=== PATIENT | male | born 1990 | race Caucasian/White ===

== ENCOUNTER 2020-09-26 06:28 | Emergency (ER) | payer OTHER ==
[2020-09-26 08:11] LABS: HEMOGLOBIN 16.9 gm/dl (14.0-17.5); RED BLOOD COUNT 5.87 M/UL (4.20-5.50); WHITE BLOOD COUNT 8.9 K/UL (4.5-11.0)
[2020-09-26 08:16] LABS: BUN/CREATININE RATIO 8 (0-10)
[2020-09-26] MEDS ORDERED: IBUPROFEN400 MG PO (09:26)
== END 2020-09-26 09:47 | disposition home or self-care (01) ==
LOC: ER1 06:28
PROVIDERS: Emergency Medicine
DX: N13.2 Hydronephrosis with renal and ureteral calculous obstruction (principal); R16.1 Splenomegaly, not elsewhere classified; F19.10 Other psychoactive substance abuse, uncomplicated; Z90.49 Acquired absence of other specified parts of digestive tract
CPT/HCPCS: 80053; 81001; 85025; 96374; 96375; 99284; J2270; J2405; J7030

== ENCOUNTER 2021-03-13 00:41 | Emergency (ER) | payer OTHER ==
[~2021-03-13] VITALS: Ht 180.3 cm; Wt 79.4 kg
[~2021-03-13 00:41] MED LIST: IBUPROFEN400 MG PO
[2021-03-13 01:48] LABS: HEMOGLOBIN 14.4 gm/dl (14.0-17.5); RED BLOOD COUNT 4.96 M/UL (4.20-5.50); WHITE BLOOD COUNT 5.6 K/UL (4.5-11.0)
[2021-03-13 01:58] LABS: BUN/CREATININE RATIO 9 (0-10)
== END 2021-03-13 06:01 | disposition home or self-care (01) ==
LOC: ER1 00:41
PROVIDERS: Emergency Medicine
PROC: 3E1N38Z Irrigation of Male Reproductive using Irrigating Substance, Percutaneous Approach (ICD-10-PCS; principal; 2021-03-13)
DX: N48.30 Priapism, unspecified (principal); R00.2 Palpitations
CPT/HCPCS: 72170; 74018; 80048; 81001; 85025; 96374; 96375; 99284; J2250; J2270; J2370

== ENCOUNTER 2021-05-12 00:25 | Emergency (ER) | payer OTHER ==
[2021-05-13 22:07] LABS: CHLAMYDIA TRACHOMATIS, NAA Negative (Negative); NEISSERIA GONORRHOEAE, NAA Positive (Negative)
== END 2021-05-12 04:36 | disposition left against medical advice (07) ==
LOC: ER1 00:25
PROVIDERS: Family Medicine
DX: R07.9 Chest pain, unspecified (principal); N39.0 Urinary tract infection, site not specified; F17.200 Nicotine dependence, unspecified, uncomplicated
CPT/HCPCS: 81001; 87086; 99283

== ENCOUNTER 2021-10-28 14:23 | Emergency (ER) | payer OTHER | END 2021-10-28 17:38 | disposition left against medical advice (07) | LOC: ER1 14:23 | DX: Z53.21 Procedure and treatment not carried out due to patient leaving prior to being seen by health care provider (principal) ==

== ENCOUNTER 2021-10-30 00:30 | Emergency (ER) | payer OTHER | END 2021-10-30 05:10 | disposition short-term general hospital (02) | LOC: ER1 00:30 | PROC: 3E1N38Z Irrigation of Male Reproductive using Irrigating Substance, Percutaneous Approach (ICD-10-PCS; principal; 2021-10-30) | DX: N48.30 Priapism, unspecified (principal); R03.0 Elevated blood-pressure reading, without diagnosis of hypertension; F17.200 Nicotine dependence, unspecified, uncomplicated | CPT/HCPCS: 96374; 99284; J2370; J2405 ==